=== PATIENT | female | born 2005 | race Caucasian/White ===

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

== ENCOUNTER 2023-12-02 06:00 | Inpatient (IN) | payer OTHER ==
[2023-12-02] MEDS ORDERED: TRANEXAMIC 1,000 MG/100ML-NACL 1,000 MG in EMPTY BAG 1 BAG IV PRN (06:27)
[2023-12-02] MEDS ORDERED: TERBUTALINE 1 MG/ML VIAL SQ PRN (06:27)
[2023-12-02] MEDS ORDERED: CARBOPROST TROMETHAMINE 250 MCG/ML 1 ML AMP IM PRN (06:27)
[2023-12-02] MEDS ORDERED: LIDOCAINE 0.5% (PF) 5 MG/ML (50 ML SDV) SQ PRN (06:27)
[2023-12-02] MEDS ORDERED: METHYLERGONOVINE 0.2 MG/ML 1 ML AMP IM PRN (06:27)
[2023-12-02] MEDS ORDERED: OXYTOCIN 10 UNIT/ML 1 ML VIAL IM PRN (06:27)
[2023-12-02] MEDS ORDERED: miSOPROStoL 200 MCG TAB PO PRN (06:27)
[2023-12-02] MEDS: LACTATED RINGERS 1,000 ML IV SCH (06:40)
[2023-12-02] MEDS: OXYTOCIN 30 UNITS/500 ML NS 30 UNIT in SALINE 1 500ML.BAG IV SCH ×2 (07:06→12:50)
[2023-12-02 07:32] LABS: Basophils % (A) 0 %; Eosinophils # (A) 0.1 k/uL (0-0.7); Eosinophils % (A) 2 %; HCT 35.8 % (34.0-46.0); Lymphocytes # (A) 2.7 k/uL (1.0-4.8); Lymphocytes % (A) 37 %; MCH 30.9 pg (25.0-35.0); MCHC 33.5 g/dL (31.0-37.0); MCV 92.2 fL (80.0-100.0); Mean Platelet Volume 10.2; Monocytes # (A) 0.4 k/uL (0-1.0); Monocytes % (A) 6 %; Neutrophils # (A) 3.8 k/uL (1.3-7.7); Neutrophils % (A) 53 %; Platelet Count 176 k/uL (150-450); RBC 3.88 m/uL (3.80-5.40); RDW 13.1 % (11.5-15.5); WBC 7.1 k/uL (4.0-11.0)
--- NOTE | 2023-12-02 07:32 | P.HPOB ---
History of Present Illness H&P Date: 12/02/23 Chief Complaint: Elective induction of labor Ms. Leslie is a 18 year old at 39 weeks and 0 days with EDC of 12/09/2023 by LMP consistent with 29 week US who presents to labor and delivery for elective induction of labor. Her has been complicated by late presen tation to care. On initial anatomy US, there was suspicion for undescended testes, however, on follow up imaging the testes were within normal limits. On a 34 week growth US, the fetus was estimated in the 37%ile for growth. Of note, this baby is up for adoption. Obstetric history: 2 FTVD, no complications work-up: blood type A positive, antibody negative, rubella immune, VDRL non-reactive, HBsAg negative, HIV negative, HCV Ab non-reactive, gonorrhea negative, chlamydia negative, 1 hour GTT within normal limits, GBS negative. s/p TDap vaccine. Past Medical History Past Medical History: No Reported History Additional Past Medical History / Comment(s): social history: First was a vaginal delivery, this is her second and she's had care with me since the first trimester. Blood type is A+, amylase negative, rubella immune, hepatitis B-, GBS negative, HIV nonreactive, RPR nonreactive. History of Any Multi-Drug Resistant Organisms: None Reported Past Surgical History: No Surgical Hx Reported Additional Past Surgical History / Comment(s): Repair of external left ear Past Anesthesia/Blood Transfusion Reactions: No Reported Reaction Past Psychological History: Anxiety, Depression Smoking Status: Never smoker Past Alcohol Use History: None Reported Past Drug Use History: Marijuana - Past Family History Mother Family Medical History: Cancer Medications and Allergies Home Medications Medication Instructions Recorded Confirmed Type Vit No.180/Iron/Folic 1 tab PO DAILY 09/06/19 08/01/21 History [ Plus Vitamin-Mineral] Allergies Allergy/AdvReac Type Severity Reaction Status Date / Time No Known Allergies Allergy Verified 12/02/23 06:26 Exam Vital Signs Temp Pulse Resp BP Pulse Ox 12/02/23 06:25 96.9 F L 73 16 132/68 100 Intake and Output 12/01/23 12/02/23 12/02/23 22:59 06:59 14:59 Other: Weight 97.522 kg Focused physical exam is performed. This is a healthy-appearing in no apparent distress. Breathing is non-labored. Abdomen is gravid, non-tender. Cervical exam is 3/80/-2. AROM is undertaken revealing clear amniotic fluid. Extremities are non-tender and non-edematous. FHTs are Category I and tocometer is graphing contractions every 3-5 minutes. Assessment and Plan Assessment: 18 year old at 39 weeks presenting for eIOL Plan: Admit, clear liquid diet, pitocin per protocol, continuous EFM and tocometer (can take short breaks for shower), close monitoring of patient. Anticipate vaginal delivery.
[2023-12-02] MEDS ORDERED: NALBUPHINE 10 MG/ML (10 ML MDV) IV PRN (10:29)
[2023-12-02] MEDS ORDERED: ACETAMINOPHEN TAB 325 MG TAB PO PRN (11:58)
[2023-12-02] MEDS ORDERED: SIMETHICONE 80 MG CHEWABLE PO PRN (11:58)
[2023-12-02] MEDS ORDERED: diphenhydrAMINE 25 MG CAP PO PRN (11:58)
[2023-12-02] MEDS ORDERED: diphenhydrAMINE 50 MG CAP PO PRN (11:58)
[2023-12-02] MEDS ORDERED: ZOLPIDEM 5 MG TAB PO PRN (11:58)
[2023-12-02] MEDS: IBUPROFEN 600 MG TAB PO PRN (12:55)
[2023-12-02 14:25] LABS: Amphetamine Screen,Urine Not Detected (NotDetected); Barbiturate Screen,Urine Not Detected (NotDetected); Benzodiazepines Screen,Urine Not Detected (NotDetected); Cocaine Screen,Urine Not Detected (NotDetected); Methadone Screen, Urine Not Detected (NotDetected); Opiate Screen,Urine Not Detected (NotDetected); Oxycodone Screen, Urine Not Detected (NotDetected); Phencyclidine Screen,Urine Not Detected (NotDetected); Tricyclic Antidepressant,Urine Not Detected (NotDetected); Urn Cannabinoid Scrn Not Detected (NotDetected)
--- NOTE | 2023-12-02 20:33 | P.PROBDLV ---
Vaginal Delivery Note - . Vaginal Delivery Note: DATE OF SERVICE: 12/02/2023 PROCEDURE: Normal Vaginal Delivery ATTENDING: Dr. Oksana Evans MD ESTIMATED BLOOD LOSS: 400 mL FINDINGS: VMI, Apgars 8/9. Weight 7 pounds and 13 ounces (3560 grams) PROCEDURE: Ms. Leslie is a 18 year old at 39 weeks presenting to labor and delivery for elective induction of labor. The has been essentially uncomplicated. For further details, please review the admitting H&P. Pitocin was titrated per protocol. AROM was undertaken at 723 revealing clear amniotic fluid. The patient was completely dilated at 1105. She had excellent expulsive efforts and delivered a viable male over an intact perineum at 1107. The infant was placed on the maternal abdomen and bulb suctioned. The infant was noted to be spontaneously crying. Cord was clamped and cut after a 30-second delay. The was handed off to the pediatric team. Placenta was delivered whole with gentle cord traction at 1109. Oxytocin was started to facilitate uterine tone. Uterine fundus was found to be firm and below the umbilicus upon fundal massage. Thorough examination of the cervix, vagina, periurethral area, and perineum revealed no lacerations. The patient is stable and allowed to begin the bonding process.
[2023-12-02] MEDS: SENNOSIDES-DOCUSATE SODIUM 1 EACH TAB PO SCH (21:38)
[2023-12-03 07:44] LABS: Basophils % (A) 1 %; Eosinophils # (A) 0.1 k/uL (0-0.7); Eosinophils % (A) 2 %; HCT 37.2 % (34.0-46.0); HGB 12.2 gm/dL (11.4-16.0); Lymphocytes # (A) 2.5 k/uL (1.0-4.8); Lymphocytes % (A) 29 %; MCH 30.3 pg (25.0-35.0); MCHC 32.8 g/dL (31.0-37.0); MCV 92.5 fL (80.0-100.0); Mean Platelet Volume 9.9; Monocytes # (A) 0.4 k/uL (0-1.0); Monocytes % (A) 4 %; Neutrophils # (A) 5.5 k/uL (1.3-7.7); Neutrophils % (A) 62 %; Platelet Count 172 k/uL (150-450); RBC 4.02 m/uL (3.80-5.40); RDW 13.1 % (11.5-15.5); WBC 8.8 k/uL (4.0-11.0)
[2023-12-03 08:55] VITALS: BP 98/63; PULSE 79; RESP 16; TEMP 97.6
--- NOTE | 2023-12-03 09:01 | P.DS ---
Providers Date of admission: 12/02/23 06:17 Expected date of discharge: 12/03/23 Attending physician: Oksana Evans MD Primary care physician: Stated None Hospital Course: Ms. Leslie is a 18 year old now s/p normal vaginal delivery after induction of labor at 39 weeks. Of note, the baby is up for adoption. The patient is doing well this morning and had no acute events overnight. She has no complaints this morning. She reports minimal lochia, passing flatus, voiding without difficulty, ambulating, and eating/drinking without nausea or vomiting. doing well at bedside, adoptive parents decline circumcision. She denies chest pain, shortness of breathing, fevers, or chills overnight. She denies pain or swelling in the legs. Postoperative restrictions are reviewed with the patient including pelvic rest for 6 weeks. The patient is encouraged to call the office if she experiences any heavy bleeding, foul-smelling discharge, breast complaints, or any if she has any other concerns. She will follow up in the office in 6 weeks for exam. She will go home with Motrin and Tylenol sent to her pharmacy as needed for pain. All questions are answered. Assessment: 18 year old PPD#1 s/p normal vaginal delivery Patient Condition at Discharge: Good Plan - Discharge Summary Discharge Rx Participant: No New Discharge Prescriptions: New Ibuprofen [Motrin] 600 mg PO Q6HR PRN #30 tab PRN Reason: Mild Pain (Scale 1 To 3) Acetaminophen Tab [Tylenol] 650 mg PO Q6H PRN #30 tab PRN Reason: Mild Pain (Scale 1 To 3) No Action Vit No.180/Iron/Folic [ Plus Vitamin-Mineral] 1 tab PO DAILY Discharge Medication List Vit No.180/Iron/Folic [ Plus Vitamin-Mineral] 1 tab PO DAILY 09/06/19 [History] Acetaminophen Tab [Tylenol] 650 mg PO Q6H PRN #30 tab 12/03/23 [Rx] Ibuprofen [Motrin] 600 mg PO Q6HR PRN #30 tab 12/03/23 [Rx] Follow up Appointment(s)/Referral(s): Oksana Evans MD [STAFF PHYSICIAN] - 6 Weeks Activity/Diet/Wound Care/Special Instructions: Instructions 1. Do not begin any exercise program for 3 weeks. 2. Do not resume sexual relations for 6 weeks or longer if uncomfortable. 3. You may take tub baths or showers at any time. 4. You may use tampons if desired after 6 weeks. 5. Keep any areas repaired with stitches clean and dry. 6. If you are not nursing, wear a good fitting, supportive bra during the day and limit fluid intake for at least 1 week to prevent breast engorgement. 7. Call the office, , within the next week to make appointment for your 6 week checkup if it has not already been made. 8. Report any of the following occurrences to the doctor promptly: a. Heavy, excessive bleeding b. Chills, fever c. Burning or frequency of urination d. Pain or redness and breasts if nursing e. Increasing pain or swelling of vulva (stitches). In addition to the above instructions, the following additional should be followed: 1. No heavy lifting or straining (exercising) until after 6 week checkup. 2. Keep abdominal incision clean and dry: You may wear a dressing if more comfortable. 3. Make office appointment for 2 weeks after delivery date. Discharge Disposition: HOME SELF-CARE
[2023-12-03] MEDS: medroxyPROGESTERone 150 MG/ML 1ML VIAL IM ONE (10:16)
== END 2023-12-03 11:40 | disposition home or self-care (01) | DRG 560 ==
LOC: EEVIPCON 06:00 → 4FBP 06:17
PROVIDERS: ADMIT Obstetrics & Gynecology; ATTEND Obstetrics & Gynecology
PROC: 10E0XZZ Delivery of Products of Conception, External Approach (ICD-10-PCS; principal; 2023-12-02)
PROC: 10907ZC Drainage of Amniotic Fluid, Therapeutic from Products of Conception, Via Natural or Artificial Opening (ICD-10-PCS; principal; 2023-12-02)
PROC: 3E033VJ Introduction of Other Hormone into Peripheral Vein, Percutaneous Approach (ICD-10-PCS; principal; 2023-12-02)
DX: O80 Encounter for full-term uncomplicated delivery (principal); Z3A.39 39 weeks gestation of pregnancy; Z37.0 Single live birth
CPT/HCPCS: 80306; 85025; 86850; 86900; 86901